=== PATIENT | female | born 1990 | race Two or more races ===

== ENCOUNTER 2017-09-01 14:19 | Emergency (ER) | payer OTHER ==
[~2017-09-01] VITALS: Ht 157.5 cm; Wt 72.6 kg
[2017-09-01 15:09] VITALS: BP 115/56
== END 2017-09-01 15:46 | disposition home or self-care (01) ==
LOC: ED 15:40
DX: G51.0 Bell's palsy (principal)
CPT/HCPCS: 70450; 99284